=== PATIENT | male | born 1950 | race Caucasian/White ===

== ENCOUNTER → 2017-05-06 | Outpatient (CLI) | payer MEDICARE, OTHER | LOC: M WUC 08:29 | PROVIDERS: ATTEND Physician Assistant | DX: M10.00 Idiopathic gout, unspecified site (principal) ==

== ENCOUNTER → 2017-11-21 | Outpatient (CLI) | payer MEDICARE, OTHER | LOC: M WUC 10:34 | DX: M25.572 Pain in left ankle and joints of left foot (principal) | CPT/HCPCS: 73610 ==

== ENCOUNTER 2018-09-20 08:46 | Emergency (ER) | payer MEDICARE, OTHER ==
[~2018-09-20] VITALS: Ht 177.8 cm; Wt 70.5 kg
[2018-09-20] MEDS ORDERED: NEO-0.25 (09:13)
[2018-09-20 09:21] VITALS: BP 172/92
== END 2018-09-20 09:23 | disposition home or self-care (01) ==
LOC: M ED 08:46
DX: R04.0 Epistaxis (principal)

== ENCOUNTER 2019-04-05 00:41 | Emergency (ER) | payer MEDICARE, OTHER ==
[~2019-04-05] VITALS: Ht 177.8 cm; Wt 81.8 kg
[~2019-04-05 00:41] MED LIST: PHEN15SP
[2019-04-05] MEDS ORDERED: ONDANSETRON 4MG/2ML VIAL (J2405) IV ONE (01:00)
[2019-04-05] MEDS ORDERED: NS 1,000 ML IV ONE (01:00)
[2019-04-05 01:25] LABS: BASO % 0.3 % (0.0-1.0); EOS % 0.1 % (0.0-3.0); HEMATOCRIT 49.4 % (42.0-52.0); HEMOGLOBIN 17.1 g/dl (13.5-17.5); LYMPH # 0.8 10^3/uL (1.5-5.0); LYMPH % 8.7 % (24.0-44.0); MEAN CORPUSCULAR HEMOGLOBIN 32.6 pg (27.0-33.0); MEAN CORPUSCULAR HGB CONC 34.6 g/dl (32.0-36.5); MEAN CORPUSCULAR VOLUME 94.1 fl (80.0-96.0); MONO # 0.8 10^3/uL (0.0-0.8); MONO % 8.7 % (0.0-5.0); NEUTROPHILS # 7.4 10^3/uL (1.5-8.5); NEUTROPHILS % 81.9 % (36.0-66.0); PLATELET COUNT, AUTOMATED 128 10^3/uL (150-450); RED BLOOD COUNT 5.25 10^6/uL (4.30-6.10)
--- NOTE | 2019-04-05 01:25 | REPVR ---
EXAM: CT Abdomen and Pelvis Without Contrast EXAM DATE/TIME: 04/05/2019 1:03 AM CLINICAL HISTORY: 69 years old, male; Left flank pain, renal colic. TECHNIQUE: Imaging protocol: Computed tomography of the abdomen and pelvis without contrast. Radiation optimization: All CT scans at this facility use at least one of these dose optimization techniques: automated exposure control; mA and/or kV adjustment per patient size (includes targeted exams where dose is matched to clinical indication); or iterative reconstruction. COMPARISON: No relevant prior studies available. FINDINGS: Lungs: The imaged lung bases are clear. Heart: No cardiomegaly. No pericardial effusion. Mediastinum: There is a small sliding hiatal hernia. Liver: Unremarkable. No liver lesion is seen. The contour of the liver is smooth. No hepatomegaly is noted. Gallbladder and bile ducts: No calcified gallstones are seen. No gallbladder wall thickening, pericholecystic fluid, or pericholecystic inflammatory changes are identified. No dilation of the intrahepatic or extrahepatic bile ducts is noted. Pancreas: There are several calcifications in the pancreas, which are the sequela of chronic pancreatitis. Spleen: Unremarkable. No splenomegaly. Adrenals: Normal. No mass. Kidneys and ureters: There is a 6 mm x 7 mm x 9 mm calculus in the left proximal ureter just distal to the left ureteropelvic junction, and there is mild to moderate left hydronephrosis, left perinephric stranding, and a small amount of perinephric fluid. No other stones are seen in the genitourinary system. No renal lesion is identified. Stomach and bowel: There is colonic diverticulosis without evidence for diverticulitis. There is no evidence for a bowel obstruction, colitis, pneumatosis intestinalis, intussusception, volvulus, or perforated viscus. Appendix: Normal. No evidence for appendicitis. Intraperitoneal space: Unremarkable. No free air. No fluid collection. Vasculature: No abdominal aortic aneurysm. There are moderate atherosclerotic calcifications. Lymph nodes: Normal. No enlarged lymph nodes. Bladder: Unremarkable. No calculi or masses are noted in the bladder. Reproductive: The prostate gland is enlarged. The seminal vesicles are unremarkable. There is dilation of the veins of the right pampiniform plexus by 5 mm, indicating a right varicocele. There is dilation of the veins of the left pampiniform plexus by 6 mm, indicating a left varicocele. Bones/joints: The imaged bony structures are intact. There is no suspicious osteolytic or osteoblastic lesion. There are degenerative changes in the lumbar spine. Soft tissues: There is a small fat-containing direct left inguinal hernia. There is a small fat containing umbilical hernia. IMPRESSION: 1. 6 mm x 7 mm x 9 mm calculus in the left proximal ureter just distal to the left ureteropelvic junction and mild/moderate left hydronephrosis. 2. Bilateral varicoceles. 3. Enlarged prostate gland. 4. Several calcifications in the pancreas, which are the sequela of chronic pancreatitis. 5. Colonic diverticulosis without evidence for diverticulitis. 6. Small fat-containing direct left inguinal hernia. 7. Small fat-containing umbilical hernia. 8. Small sliding hiatal hernia. Electronically signed by: Andres Amezquita On 04/05/2019 01:24:32 AM
[2019-04-05] MEDS ORDERED: KETOROLAC 30 MG/ML VIAL (J1885) IV ONE (01:45)
[2019-04-05] MEDS ORDERED: ONDA4TAB6 PO (01:53)
[2019-04-05] MEDS ORDERED: FLOM0.4C39 PO (01:53)
[2019-04-05] MEDS ORDERED: IBUP80TA PO (01:53)
[2019-04-05] MEDS ORDERED: NORC1TAB7 PO (01:53)
[2019-04-05] MEDS ORDERED: NORCO 5/325MG TABLET (BULK FOR ED) PO ONE (02:00)
[2019-04-05 02:23] VITALS: BP 170/90
--- NOTE | 2019-04-05 06:42 | ECGEPIP ---
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 Order Number: [id number] Reading MD: Montana Hinojosa Measurements Intervals [place] Rate: 70 P: 72 DE: 147 QRS: -42 QRSD: 88 T: 63 QT: 405 QTc: 437 Interpretive Statements SINUS RHYTHM POSSIBLE LEFT ATRIAL ENLARGEMENT MARKED LEFT AXIS DEVIATION POSSIBLE RIGHT VENTRICULAR CONDUCTION DELAY NONSPECIFIC ST T WAVE CHANGES NO PRIOR ECG FOR COMPARISON Electronically Signed on 04-05-2019 6:41:53 EDT by Montana Hinojosa
--- NOTE | 2019-04-05 07:16 | ED PDOC ---
Post-Departure Follow-Up dr burgos faxed formal report of ct abd/p for fu Montana France MD Apr 05, 2019 07:16
[2019-04-08 00:07] LABS: Lyme Disease IgG Ab 18 kDa Ban Present (.); Lyme Disease IgG Ab 23 kDa Ban Absent (.); Lyme Disease IgG Ab 28 kDa Ban Absent (.); Lyme Disease IgG Ab 30 kDa Ban Absent (.); Lyme Disease IgG Ab 39 kDa Ban Present (.); Lyme Disease IgG Ab 41 kDa Ban Present (.); Lyme Disease IgG Ab 45 kDa Ban Absent (.); Lyme Disease IgG Ab 58 kDa Ban Present (.); Lyme Disease IgG Ab 66 kDa Ban Absent (.); Lyme Disease IgG Ab 93 kDa Ban Present (.); Lyme Disease IgG West Blot Int Positive (.); Lyme Disease IgG/IgM Antibodie 1.88 ISR (0.00-0.90); Lyme Disease IgM Ab 23 kDa Ban Absent (.); Lyme Disease IgM Ab 39 kDa Ban Absent (.); Lyme Disease IgM Ab 41 kDa Ban Absent (.); Lyme Disease IgM Ab Quantitati <0.80 index (0.00-0.79); Lyme Disease IgM West Blot Int Negative (.)
== END 2019-04-05 02:25 | disposition home or self-care (01) ==
LOC: M ED 00:41
DX: N20.1 Calculus of ureter (principal); N40.0 Benign prostatic hyperplasia without lower urinary tract symptoms; K40.90 Unilateral inguinal hernia, without obstruction or gangrene, not specified as recurrent
CPT/HCPCS: 74176; 80047; 81001; 85025; 86617; 93005; 96361; 96374; 96375; 99284; J1885; J2405

== ENCOUNTER 2019-04-07 09:26 | Day surgery (SDC) | payer MEDICARE, OTHER ==
[~2019-04-07] VITALS: Ht 177.8 cm; Wt 70.4 kg
[~2019-04-07 09:26] MED LIST changes: +FLOM0.4C39 PO; +IBUP80TA PO; +NORC1TAB7 PO; +ONDA4TAB6 PO
--- NOTE | 2019-04-07 11:09 | REP ---
Clinical: Left flank pain. Technique: Axial noncontrast images from the lung bases to the pubic symphysis with coronal and sagittal re-formations. Findings: Acute left-sided obstructive uropathy with hydronephrosis and proximal hydroureter secondary to a 9 mm obstructing calculus at the ureteropelvic junction (image 59). No other urinary tract calcifications are appreciated. Right kidney/ureter and bladder appear normal. Liver, spleen, pancreas, gallbladder, and bilateral adrenal glands are normal. The enteric system is without obstruction or acute inflammatory process. Normal appendix identified in the right lower quadrant. Colonic diverticulosis noted without acute diverticulitis. Pelvis demonstrates normal bladder and mildly enlarged prostate gland measuring 5.1 cm maximal transverse diameter. No ascites. No free air. No adenopathy. Atherosclerotic changes of the aorta and vasculature noted. Musculoskeletal structures are intact. Impression: 1. Acute left-sided obstructive uropathy with a 9 mm obstructing calculus at the ureteropelvic junction. 2. Diverticulosis. 3. Enlarged prostate gland. Electronically Signed by Lukasz Spivey MD 04/07/2019 11:00 A
[2019-04-07] MEDS ORDERED: NS 1,000 ML IV ONE (12:30)
[2019-04-07] MEDS ORDERED: HYDR-3713 PO (12:50)
[2019-04-07] MEDS ORDERED: IBUP80TA PO (12:50)
[2019-04-07 12:52] LABS: BASO % 0.3 % (0.0-1.0); HEMATOCRIT 49.5 % (42.0-52.0); HEMOGLOBIN 16.3 g/dl (13.5-17.5); LYMPH # 0.7 10^3/uL (1.5-5.0); MEAN CORPUSCULAR HEMOGLOBIN 32.2 pg (27.0-33.0); MEAN CORPUSCULAR HGB CONC 32.9 g/dl (32.0-36.5); MEAN CORPUSCULAR VOLUME 97.8 fl (80.0-96.0); MONO % 11.1 % (0.0-5.0); NEUTROPHILS # 7.2 10^3/uL (1.5-8.5); NEUTROPHILS % 80.2 % (36.0-66.0); PLATELET COUNT, AUTOMATED 114 10^3/uL (150-450); RED BLOOD COUNT 5.06 10^6/uL (4.30-6.10)
[2019-04-07 13:13] LABS: ALBUMIN 3.6 GM/DL (3.2-5.2); BILIRUBIN,DIRECT 0.3 MG/DL (0.0-0.2); BILIRUBIN,TOTAL 1.1 MG/DL (0.2-1.0); TOTAL PROTEIN 7.1 GM/DL (6.4-8.2)
--- NOTE | 2019-04-07 13:13 | REP ---
Clinical: chest and abdominal pain. Comparison: none. Technique: PA and lateral. Findings: The mediastinum and cardiac silhouette are normal. The lung smith are clear and without acute consolidation, effusion, or pneumothorax. The skeletal structures are intact and normal. Impression: 1. No acute cardiopulmonary process. Electronically Signed by Lukasz Spivey MD 04/07/2019 01:04 P
[2019-04-07] MEDS ORDERED: CONRAY-60 60% 50ML VIAL (Q9961) As Ordered ONE (16:20)
[2019-04-07] MEDS ORDERED: fentaNYL 100 MCG/2 ML INJECTION (J3010) As Ordered ONE (16:22)
[2019-04-07] MEDS ORDERED: LIDOCAINE 2% INJ 100 MG/5 ML SDV (FOR ANES.) As Ordered ONE (16:22)
[2019-04-07] MEDS ORDERED: MIDAZOLAM INJ 2 MG/2 ML VIAL (J2250) As Ordered ONE (16:22)
[2019-04-07] MEDS ORDERED: dexameTHASONE 4 MG/ML 1ML VIAL (J1100) As Ordered ONE (16:22)
[2019-04-07] MEDS ORDERED: ONDANSETRON 4MG/2ML VIAL (J2405) As Ordered ONE (16:22)
[2019-04-07] MEDS ORDERED: PROPOFOL 200 MG/20 ML VIAL As Ordered ONE (16:23)
--- NOTE | 2019-04-07 16:52 | SMCUROLCON ---
Urology Consultation General Date of Consultation 04/07/19 Reason For Consultation This patient is seen for Kidney Issue. History of Present Illness This is a 69 y/o M w/ a PMH significant for kidney stones (has passed stones previously), presenting to the ER for severe left flank pain. He came in 2 days ago for the same pain and nausea. A CT A/P was obtained and was notable for a 9mm obstructing left UPJ stone. He was sent home w/ flomax and given pain medication, and his pain came back today. A repeat CT shows that the stone has not moved. His UA appears negative for infection. His WBC is normal. A BMP was not done. Past Medical History Medical History kidney stones Surgical Hstory none Medications Current Medications Current Medications Medications (Trade) Dose Ordered Sig/Alvin Route PRN Reason Start Time Stop Time Status Last Admin Dose Admin Home Med (Med Rec Complete!) ASDIRECTED XX 04/07/19 13:00 04/07/19 13:08 [place] Allergies Allergies: Coded Allergies: No Known Allergies (Unverified , 09/20/18) Review of Systems Constitutional: Denies: Fever, Chills, Sweats, Weakness, Malaise, Other Skin: Denies: Rash, Lesions, Jaundice, Bruising, Itching, Dry, Breakdown, Nail Changes, Other Pulmonary: Denies: Dyspnea, Cough Cardiovascular: Denies Chest Pain, Denies Palpitations Gastrointestinal: Reports: Nausea; Denies: Vomiting, Abdominal Pain Genitourinary: Denies: Dysuria, Frequency, Incontinence, Hematuria Musculoskeletal: Reports: Back Pain (left flank pain) Neurological: Denies: Weakness, Numbness, Incoordination, Change in Speech Psych: Reports: Mood Normal; Denies: Anxiety, Depression Physical Examination General Exam: Alert, Cooperative, No Acute Distress Chest Exam: Clear to auscultation Heart Exam: Rate Normal, Regular Rhythm Abdomen Exam: Soft Skin Exam: Nl turgor and temperature Neuro Exam: Normal Speech Psych Exam: Mental status NL, Mood NL Vital Signs/I&O Vital Signs Date Time Temp Pulse Resp B/P (MAP) Pulse Ox O2 Delivery O2 Flow Rate FiO2 04/07/19 16:12 96.5 74 18 181/84 (116) 98 04/07/19 14:56 Room Air Laboratory Data 24H Labs Laboratory Tests 2 04/07/19 10:15: Urine Color YELLOW, Urine Appearance CLEAR, Urine pH 5.0, Urine Specific [place] 1.016, Urine Protein NEGATIVE, Urine Glucose (UA) NEGATIVE, Urine Ketones 1+H, Urine Blood 2+H, Urine Nitrite NEGATIVE, Urine Bilirubin NEGATIVE, Urine Urobilinogen 0.2, Urine Leukocyte Esterase NEGATIVE, Urine WBC (Auto) 2, Urine RBC (Auto) 12H, Urine Hyaline Casts (Auto) 0, Urine Bacteria (Auto) 1+H, Urine Squamous Epithelial Cells 0, Urine Sperm (Auto) 04/07/19 12:02: POC Glucose (Misc Panel) 83, POC Sodium (Misc Panel) 136, POC Potassium (Misc Panel) 4.0, POC Chloride (Misc Panel) 100, POC Total CO2 (Misc Panel) 25.0, POC Blood Urea Nitrogen (Misc Panel 23, POC Ionized Calcium (Misc Panel) 4.8, POC Creatinine (Misc Panel) 1.6H, POC Hematocrit (Misc Panel) 48.0 04/07/19 12:33: Immature Granulocyte % (Auto) 0.4, White Blood Count 9.0, Red Blood Count 5.06, Hemoglobin 16.3, Hematocrit 49.5, Mean Corpuscular Volume 97.8H, Mean Corpuscular Hemoglobin 32.2, Mean Corpuscular Hemoglobin Concent 32.9, Red Cell Distribution Width 12.9, Platelet Count 114L, Neutrophils (%) (Auto) 80.2H, Lymphocytes (%) (Auto) 8.0L, Monocytes (%) (Auto) 11.1H, Eosinophils (%) (Auto) 0.0, Basophils (%) (Auto) 0.3, Neutrophils # (Auto) 7.2, Lymphocytes # (Auto) 0.7L, Monocytes # (Auto) 1.0H, Eosinophils # (Auto) 0.0, Basophils # (Auto) 0.0, Nucleated Red Blood Cells % (auto) 0.0, Aspartate Amino Transf (AST/SGOT) 30, Alanine Aminotransferase (ALT/SGPT) 30, Alkaline Phosphatase 57, Total Bilirubin 1.1H, Direct Bilirubin 0.3H, Total Protein 7.1, Albumin 3.6, Albumin/Globulin Ratio 1.03 CBC/BMP Laboratory Tests 04/07/19 12:33 Red Blood Count 5.06, Mean Corpuscular Volume 97.8 H, Mean Corpuscular Hemoglobin 32.2, Mean Corpuscular Hemoglobin Concent 32.9, Red Cell Distribution Width 12.9, Neutrophils (%) (Auto) 80.2 H, Lymphocytes (%) (Auto) 8.0 L, Monocytes (%) (Auto) 11.1 H, Eosinophils (%) (Auto) 0.0, Basophils (%) (Auto) 0.3, Neutrophils # (Auto) 7.2, Lymphocytes # (Auto) 0.7 L, Monocytes # (Auto) 1.0 H, Eosinophils # (Auto) 0.0, Basophils # (Auto) 0.0 Assessment This is a 69 y/o M w/ recurrent left flank pain due to a 9mm obstructing left UPJ stone. I do not think he will be able to pass this stone. Since this is his second trip to the ER in 2 days, I recommended taking him to the OR this evening for cystoscopy, left ureteroscopy w/ laser lithotripsy, and left ureteral stent placement. After a discussion of the risks and benefits of the procedure, informed consent was signed. Plan - informed consent signed for cystoscopy, left ureteroscopy w/ laser lithotripsy, and left ureteral stent placement - NPO - plan OR now RAY PRYOR MD Apr 07, 2019 16:52
[2019-04-07] MEDS ORDERED: ceFAZolin 2 GM/D5W 50 ML IV BAG (J0690 PER 500MG) As Ordered ONE (17:00)
--- NOTE | 2019-04-07 17:14 | ECGEPIP ---
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
[2019-04-07] MEDS ORDERED: KETOROLAC 60 MG/2 ML VIAL (J1885) As Ordered ONE (17:22)
[2019-04-07] MEDS ORDERED: ONDANSETRON 4MG/2ML VIAL (J2405) IV PRN (18:45)
[2019-04-07] MEDS ORDERED: PERCOCET 5MG/325MG TAB PO PRN ×2 (18:45→19:00)
[2019-04-07] MEDS ORDERED: fentaNYL 100 MCG/2 ML INJECTION (J3010) IV PRN (18:45)
[2019-04-07] MEDS ORDERED: LR 1,000 ML IV SCH (18:45)
--- NOTE | 2019-04-07 18:55 | REP ---
HISTORY: 24 Seconds of fluoroscopy time was provided to Dr. Reji Mcintyre during left-sided double pigtail stent placement. The proximal portion of the ureteral stent is in the region of the renal pelvis and the distal portion is in the urinary bladder on the left hand side. Electronically Signed by Misbah Baird DO 04/07/2019 07:48 P
[2019-04-07 19:11] VITALS: BP 172/80
[2019-04-07 19:38] VITALS: BP 163/81
[2019-04-07 20:22] VITALS: BP 152/71
[2019-04-07 21:20] VITALS: BP 149/73
[2019-04-07 22:20] VITALS: BP 135/66
--- NOTE | 2019-04-08 08:51 | RO ---
DATE OF PROCEDURE: 04/07/2019 PREPROCEDURE DIAGNOSIS: Left ureteral stone. POSTPROCEDURE DIAGNOSIS: Left ureteral stone, prostatic bleeding. PROCEDURE: Cystoscopy, left ureteroscopy with laser lithotripsy and basket extraction of stones, left retrograde pyelogram with intraoperative interpretation of images, left ureteral stent placement, cauterization of prostatic bleeding. SURGEON: Dr. Reji Mcintyre TOUR DIRECTOR: None. ANESTHESIA: General. OPERATIVE INDICATIONS: This is a 69-year-old male who presented to the emergency room and was found to have an obstructing 9 mm left ureteropelvic junction stone two days ago. He was sent home with pain medication and Flomax. He came back to the emergency room today with recurrent flank pain and the CAT scan showed that the stone was still in the same place. Since he had come back two days after originally being seen, the decision was made to bring him to the operating room today to remove the stone. DESCRIPTION OF PROCEDURE: The patient was brought to the operating room and general anesthesia was induced. Prophylactic antibiotics were infused. He was then placed in dorsal lithotomy position and prepped and draped in the usual sterile fashion. A rigid cystoscope was inserted into the urethral meatus and advanced to the bladder. Once inside the bladder, a guidewire was advanced up the left collecting system. I then advanced the ureteral access sheath up the left collecting system. I went through the access sheath with a flexible ureteroscope and at the level of the ureteropelvic junction the 9 mm stone was seen. Of note, there was a little bit difficulty getting the scope to the stone as this part of the ureter was a little bit narrowed. I then utilized a 272 Micron laser fiber to fragment the stone into smaller pieces. Once the stone was fragmented into smaller pieces, all the fragments were removed using a basket. Once satisfied all the fragments were removed, I shot a retrograde pyelogram and it was notable for moderate left sided hydronephrosis with no extravasation. I then withdrew the ureteroscope along with the access sheath and no additional stones were seen within the ureter. I then utilized the wire to advance a 7 Kiswahili x 22-32 cm JJ ureteral stent up into the left collecting system. The wire was removed and there were adequate curls of the stent in the left renal pelvis and in the bladder. At this point, I started to withdraw the cystoscope and noted that the patient had a moderate amount of bleeding from a very large median prostate lobe. I then utilized a Bugbee to cauterize the area of bleeding until there was good hemostasis. Once satisfied with hemostasis, the cystoscope was removed. This marked the conclusion of the procedure. The patient was then taken out of the dorsal lithotomy position, awakened from anesthesia and transported to the recovery room in stable condition. Estimated blood loss: 15 mL. Complications: None. Specimen: Kidney stone fragments. Plan: The patient will followup in the clinic in approximately 3 to 4 weeks for stent removal. I will leave it in a little bit longer than normal given the narrowing in the proximal ureter. He will need an ultrasound a few weeks after stent removal to check for hydronephrosis. SUN
[2019-04-08 14:00] VITALS: BP 139/73
[2019-04-15 14:10] LABS: Ca Ox Monohydrate 93 % (.)
== END 2019-04-08 15:45 | disposition home or self-care (01) ==
LOC: M ED 09:26 → M SDC 09:27 → M ED 16:10 → M MS5PR 19:00 → M SDC 04-08 15:45
PROVIDERS: ATTEND Urology
DX: N20.1 Calculus of ureter (principal); N42.1 Congestion and hemorrhage of prostate; N40.0 Benign prostatic hyperplasia without lower urinary tract symptoms
CPT/HCPCS: 52214; 52356; 71046; 74176; 74420; 80047; 80076; 81001; 82360; 85025; 88300; 93005; 96361; 99284; C1769; C1894; C2617; J0690; J1100; J1885; J2250; J2405; J3010; Q9961

== ENCOUNTER 2023-06-19 14:12 | Emergency (ER) | payer MEDICARE, OTHER ==
[~2023-06-19] VITALS: Ht 177.8 cm; Wt 73.6 kg
[~2023-06-19 14:12] MED LIST changes: +HYDR-3713 PO; -PHEN15SP; +PHEN15SP5
[2023-06-19 17:04] LABS: BASO % 0.4 % (0.0-1.0); HEMATOCRIT 47.8 % (42.0-52.0); HEMOGLOBIN 16.3 g/dl (13.5-17.5); LYMPH # 0.7 10^3/uL (1.5-5.0); LYMPH % 8.2 % (24.0-44.0); MEAN CORPUSCULAR HEMOGLOBIN 32.1 pg (27.0-33.0); MEAN CORPUSCULAR HGB CONC 34.1 g/dl (32.0-36.5); MEAN CORPUSCULAR VOLUME 94.1 fl (80.0-96.0); MONO # 0.7 10^3/uL (0.0-0.8); MONO % 8.2 % (2.0-8.0); NEUTROPHILS # 6.7 10^3/uL (1.5-8.5); NEUTROPHILS % 81.4 % (36.0-66.0); PLATELET COUNT, AUTOMATED 147 10^3/uL (150-450); RED BLOOD COUNT 5.08 10^6/uL (4.30-6.10); WHITE BLOOD COUNT 8.2 10^3/uL (4.0-10.0)
[2023-06-19 17:19] LABS: ALBUMIN 3.7 G/DL (3.2-5.2); ALKALINE PHOSPHATASE 70 U/L (46-116); ALT/SGPT 44 U/L (7.0-40); AST/SGOT 30 U/L (<34); BILIRUBIN,DIRECT 0.3 MG/DL (<0.4); BILIRUBIN,TOTAL 0.9 MG/DL (0.3-1.2); BLOOD UREA NITROGEN 15 MG/DL (9-23); CALCIUM LEVEL 8.8 MG/DL (8.3-10.6); CARBON DIOXIDE LEVEL 26 MMOL/L (20-31); CHLORIDE LEVEL 105 MMOL/L (98-107); CREATININE FOR GFR 0.58 MG/DL (0.70-1.30); GLOMERULAR FILTRATION RATE > 60.0 (>42); GLUCOSE, FASTING 99 MG/DL (74-106); POTASSIUM SERUM 4.1 MMOL/L (3.5-5.1); SODIUM LEVEL 139 MMOL/L (136-145); TOTAL PROTEIN 6.7 G/DL (5.7-8.2)
[2023-06-19 18:53] LABS: APPEARANCE, URINE CLEAR (CLEAR); BACTERIA, URINE AUTO NEGATIVE (NEGATIVE); BILIRUBIN, URINE AUTO NEGATIVE (NEGATIVE); BLOOD, URINE BLOOD NEGATIVE (NEGATIVE); COLOR, URINE YELLOW (YELLOW); GLUCOSE, URINE (UA) AUTO NEGATIVE (NEGATIVE); KETONE, URINE AUTO TRACE mg/dL (NEGATIVE); LEUKOCYTE ESTERASE, URINE AUTO NEGATIVE (NEGATIVE); MUCUS, URINE SMALL (NEGATIVE); NITRITE, URINE AUTO NEGATIVE (NEGATIVE); PROTEIN, URINE AUTO 1+ mg/dL (NEGATIVE); RBC, URINE AUTO 1 /HPF (0-3); SPECIFIC GRAVITY URINE AUTO 1.025 (1.002-1.035); SQUAMOUS EPITHELIAL CELL UR AU 0 /HPF (0-6); UROBILINOGEN, URINE AUTO 0.2 mg/dL (0.0-2.0); WBC, URINE AUTO 1 /HPF (0-3)
[2023-06-19 19:01] LABS: MAGNESIUM LEVEL 2.1 MG/DL (1.8-2.4)
[2023-06-19 19:05] LABS: THYROID STIMULATING HORMONE 1.246 uIU/ML (0.55-4.78)
[2023-06-19 19:06] LABS: FREE T4 0.91 NG/DL (0.89-1.76)
[2023-06-19 19:34] VITALS: BP 158/78; TEMP 98.4; O2SAT 97
== END 2023-06-19 19:35 | disposition home or self-care (01) ==
LOC: M ED 14:12
DX: R03.0 Elevated blood-pressure reading, without diagnosis of hypertension (principal); Z87.442 Personal history of urinary calculi; Z79.899 Other long term (current) drug therapy